=== PATIENT | male | born 1990 | race African-American/Black ===

== ENCOUNTER 2017-02-15 20:04 | Emergency (ER) | payer OTHER ==
[~2017-02-15] VITALS: Ht 175.3 cm; Wt 70.3 kg
--- NOTE | ~2017-02-15 | CR243 ---
[facility] A Service of [facility] & [facility] RADIOLOGY TEXT RESULTS PATIENT: KARLA HICKMAN LOCATION: CFTX : [id number] UNIT #: [id number] AGE: [address]: Nancy Batres APRN SEX: M ORDER DR: [id number] [facility] [address] [place], [place] [address] [id number] MR#: [id number] Acc #: [id number] NAME: KARLA HICKMAN : 1990 SEX: M STUDY DATE/TIME: 02/15/2017 23:58 UNIT: [facility] ROOM: STUDY DESCRIPTION: CR Thoracic Spine 3 Views Attending Physician: Nancy Batres A.P.R.N. Ordering Physician: Nancy Batres A.P.R.N. Primary Care Physician: No Primary Care Physician MEDICAL IMAGING REPORT This report is preliminary unless electronic signature is present EXAM Thoracic spine, 3 views. HISTORY Back pain for 9 days. No injury. FINDINGS Three views of the thoracic spine demonstrate left upper thoracic curve measuring 17 degrees at T2-3 and right mid thoracic curve measuring 14 degrees at T7-8. No fracture or subluxation. No abnormal sclerosis. No disc space narrowing. IMPRESSION No acute findings. Mild left upper thoracic curve and right mid thoracic curve. Dictated by... Usman Song M.D. THIS IS AN ELECTRONICALLY VERIFIED REPORT Usman Song M.D. at 02/16/2017 4:22 AM AICHAL/cesar TD: 02/16/2017 02:51 JOB #: [id number] MEDICAL IMAGING REPORT Page 1 of 1 COPY
[~2017-02-15 20:04] MED LIST: ALBUTEROL17 GM INH
== END 2017-02-16 01:05 | disposition home or self-care (01) ==
LOC: CED 20:04 → CFTX 20:04
DX: S29.012A Strain of muscle and tendon of back wall of thorax, initial encounter (principal); R03.0 Elevated blood-pressure reading, without diagnosis of hypertension; J45.909 Unspecified asthma, uncomplicated; F17.200 Nicotine dependence, unspecified, uncomplicated; X50.9XXA Other and unspecified overexertion or strenuous movements or postures, initial encounter; Y92.9 Unspecified place or not applicable
CPT/HCPCS: 72072; 96372; 99283; J1885